=== PATIENT | female | born 1940 | race African-American/Black ===

== ENCOUNTER 2019-01-29 11:49 | Emergency (ER) | payer MEDICARE, OTHER ==
[~2019-01-29] VITALS: Ht 162.6 cm; Wt 88.9 kg
[2019-01-29 12:50] LABS: Basophils # (auto) 0.1 uL; Basophils % (auto) 1.7 % (0.0-2.0); Eosinophils # (auto) 0.1 uL; Eosinophils % (auto) 1.6 % (0.0-7.0); Hematocrit 38.9 % (36.0-46.0); Lymphocytes % (auto) 20.7 % (10.0-50.0); Mean Corpuscular Hgb Conc. 33.5 g/dL (32.0-36.0); Mean Corpuscular Volume 92.6 fL (80.0-100.0); Monocytes # (auto) 0.4 uL; Monocytes % (auto) 7.2 % (0.0-12.0); Neutrophils # (auto) 3.4 uL; Neutrophils % (auto) 68.8 % (37.0-80.0); Nucleated Red Blood Cells % 0.1 %; Platelet Count (auto) 163 10^3/uL (140-450); Red Cell Distribution Width 14.1 % (11.8-14.3)
[2019-01-29 13:09] LABS: Albumin 3.8 g/dL (3.4-5.0); Anion Gap 4 (5-15); Blood Urea Nitrogen 21 mg/dL (7-18); Calcium 9.8 mg/dL (8.5-10.1); Carbon Dioxide 31 mmol/L (21-32); Chloride 106 mmol/L (98-107); Glucose 119 mg/dL (74-106); Potassium 3.8 mmol/L (3.5-5.1); Sodium 141 mmol/L (136-145)
[2019-01-29 13:14] LABS: Alanine Aminotransferase 27 U/L (13-56); Alkaline Phosphatase 97 U/L (45-117); Aspartate Aminotransferase 31 U/L (15-37); BUN/Creatinine Ratio 18.9; Bilirubin, Total 0.7 mg/dL (0.2-1.0); GFR African American 61 mL/min; GFR Non-African American 50 mL/min; Total Protein 7.3 g/dL (6.4-8.2)
[2019-01-29 13:25] LABS: Urine Bacteria FEW /hpf (None Seen); Urine Blood Negative /uL (Negative); Urine Specific Gravity 1.004 (1.001-1.035); Urine WBC 1 /hpf (0 - 5)
[2019-01-29] MEDS ORDERED: MORPHINE SULF INJ 2 MG/ML SYRINGE 1ML IV ONE (15:00)
[2019-01-29] MEDS ORDERED: ONDANSETRON HCL 4 MG/2 ML VIAL IV ONE (15:00)
[2019-01-29] MEDS ORDERED: cefTRIAXone 1GM/50ML D5W 50 ML IV ONE (16:15)
[2019-01-29] MEDS ORDERED: cefTRIAXone SOD 1,000 MG VL IV ONE (16:15)
[2019-01-29 20:20] VITALS: BP 118/52
== END 2019-01-29 20:38 | disposition home or self-care (01) ==
LOC: ER 11:49 → EDBD 11:49 → ER 20:38
DX: I24.9 Acute ischemic heart disease, unspecified (principal); I10 Essential (primary) hypertension; N39.0 Urinary tract infection, site not specified; R42 Dizziness and giddiness; Z98.61 Coronary angioplasty status
CPT/HCPCS: 36415; 71045; 80053; 81001; 84484; 85025; 93005; 96365; 96375; 99284; J0696; J2270; J2405